=== PATIENT | female | born 1975 | race Caucasian/White ===

== ENCOUNTER 2018-06-12 09:39 | Emergency (ER) | payer MEDICAID ==
[~2018-06-12] VITALS: Ht 154.9 cm; Wt 61.0 kg
[~2018-06-12 09:39] MED LIST: CYCL-1 PO; HYDR1TAB PO
[2018-06-12 09:48] VITALS: BP 140/110
[2018-06-12] MEDS ORDERED: ketorolac trometh inj. 60 MG/2 ML VIAL IM ONE (10:05)
[2018-06-12] MEDS ORDERED: HYDROcodone/acetaminophen 10/325mg tab PO ONE (10:05)
[2018-06-12] MEDS ORDERED: HYDR-4353 PO (10:24)
== END 2018-06-12 10:52 | disposition home or self-care (01) ==
LOC: ER 09:39
DX: S40.012A Contusion of left shoulder, initial encounter (principal); R20.2 Paresthesia of skin; G89.29 Other chronic pain; F12.90 Cannabis use, unspecified, uncomplicated; Z88.5 Allergy status to narcotic agent; Z79.899 Other long term (current) drug therapy; Z56.0 Unemployment, unspecified; W17.89XA Other fall from one level to another, initial encounter; Y93.89 Activity, other specified; Y92.89 Other specified places as the place of occurrence of the external cause; Y99.8 Other external cause status
CPT/HCPCS: 73030; 96372; 99284; J1885

== ENCOUNTER 2022-01-01 20:53 | Emergency (ER) | payer MEDICAID ==
[~2022-01-01] VITALS: Ht 154.9 cm; Wt 61.4 kg
[2022-01-01 21:00] VITALS: BP 110/70
== END 2022-01-01 23:02 | disposition left against medical advice (07) ==
LOC: ER 20:54
DX: R60.0 Localized edema (principal); Z53.21 Procedure and treatment not carried out due to patient leaving prior to being seen by health care provider